=== PATIENT | female | born 1955 | race African-American/Black ===

== ENCOUNTER 2018-04-15 13:26 | Emergency (ER) | payer MEDICARE, MEDICAID ==
[~2018-04-15] VITALS: Ht 167.6 cm; Wt 115.0 kg
[~2018-04-15 13:26] MED LIST: CELL2; DIGO125T82; ESOM40CA; FISH1CAP38; FOLI-43; LIP40; LOSA25TA3; PRED5TAB48; PROG1; TOPXL5
[2018-04-15 14:01] VITALS: BP 171/91
[2018-04-15] MEDS ORDERED: ACETAMINOPHEN 325MG TABLET PO ONE (16:30)
[2018-04-16] MEDS ORDERED: ASPI-1159 MT (11:44)
[2018-04-16] MEDS ORDERED: RIVA20TA MT (11:44)
[2018-04-16] MEDS ORDERED: METO100T16 MT (11:44)
[2018-04-16] MEDS ORDERED: LOSA50TA20 (11:44)
[2018-04-16] MEDS ORDERED: CALC0.253 MT (11:44)
[2018-04-16] MEDS ORDERED: ALEN70TA46 MT (11:44)
== END 2018-04-15 17:08 | disposition home or self-care (01) ==
LOC: ER 13:26
DX: M54.12 Radiculopathy, cervical region (principal); I10 Essential (primary) hypertension; E78.00 Pure hypercholesterolemia, unspecified; Z94.0 Kidney transplant status; Z87.442 Personal history of urinary calculi
CPT/HCPCS: 99282

== ENCOUNTER 2018-06-04 23:00 | Inpatient (IN) | payer MEDICARE, MEDICAID ==
[~2018-06-04] VITALS: Ht 167.6 cm; Wt 112.1 kg
[~2018-06-04 23:00] MED LIST changes: +ALEN70TA46 MT; +ASPI-1159 MT; +CALC0.253 MT; -ESOM40CA; -FISH1CAP38; -FOLI-43; -LOSA25TA3; +LOSA50TA20; +METO100T16 MT; +RIVA20TA MT; -TOPXL5
[2018-06-05] VITALS (36 sets, daily range): BP systolic 109–165; BP diastolic 57–93
[2018-06-05] MEDS ORDERED: ACETAMINOPHEN 325MG TABLET PO STA (00:45)
[2018-06-05] MEDS ORDERED: SODIUM CHLORIDE 0.9% 1,000 ML IV ONE (00:45)
[2018-06-05] MEDS ORDERED: MORPHINE SULFATE 4 MG/ML CPJ (NOT FOR IM USE) IV ONE (01:15)
[2018-06-05] MEDS ORDERED: CEFTRIAXONE 1 G PREMIX 50 ML IV ONE (01:15)
[2018-06-05] MEDS ORDERED: FAMOTIDINE 20MG/2ML VIAL IV ONE (01:15)
[2018-06-05 01:24] LABS: BASOPHILS % 0.3 % (0.0-2.0); EOSINOPHILS % 0.6 % (0.0-5.0); HEMOGLOBIN. 11.8 g/dL (12.0-16.0); LYMPHOCYTES % 12.6 % (20.0-50.0); MEAN CORPUSCULAR HEMOGLOBIN 26.2 pg (28.0-32.0); MEAN CORPUSCULAR VOLUME 82.1 fL (81.0-99.0); MEAN PLATELET VOLUME 9.4 fl (7.4-10.4); MONOCYTES % 8.8 % (2.0-8.0); NEUTROPHILS % 77.7 % (40.0-76.0); PLATELET 139 x1000/uL (130-400); RED BLOOD CELL COUNT 4.51 mill/uL (4.2-5.4); RED CELL DISTRIBUTION WIDTH 14.6 % (11.6-14.6)
[2018-06-05 01:25] LABS: CHLORIDE 101 mEq/L (98-107)
[2018-06-05 01:28] LABS: INR 1.2; PARTIAL THROMBOPLASTIN TIME 27.5 sec (23.4-31.0); PROTHROMBIN TIME 12.1 sec (9.4-11.6)
[2018-06-05 01:31] LABS: PHOSPHORUS 2.7 mg/dL (2.5-4.9)
[2018-06-05 01:46] LABS: CLARITY URINE CLEAR (CLEAR); COLOR URINE YELLOW (YELLOW); KETONES URINE NEGATIVE (NEGATIVE); LEUKOCYTE ESTERASE URINE 1+ (NEGATIVE); NITRITE URINE NEGATIVE (NEGATIVE); OCCULT BLOOD URINE 1+ (NEGATIVE); PH URINE 6.5 (4.5-8.0); PROTEIN URINE NEGATIVE (NEGATIVE); SPECIFIC GRAVITY URINE 1.014 (1.005-1.030); UROBILINOGEN URINE 0.2 E.U./dL (0.2-1.0)
[2018-06-05 01:49] LABS: DIGOXIN 0.6 ng/mL (0.9-2.0)
[2018-06-05] MEDS ORDERED: MAGNESIUM 2 G PREMIX 50 ML IV ONE (02:00)
[2018-06-05 02:07] LABS: AMMONIA 24 uMol/L (<32)
[2018-06-05] MEDS ORDERED: IBUPROFEN 800MG TABLET PO ONE (02:45)
[2018-06-05 03:31] LABS: BG BASE EXCESS -0.2 mmol/L (-2.0-2.0); BG CARBOXYHEMOGLOBIN 0.8 % (0.5-1.5); BG DEOXYHEMOGLOBIN 6.3 % (0.0-5.0); BG FRACTION INSPIRED OXYGEN 21; BG HCO3 ACT 23.6 mmol/L (22.0-26.0); BG METHEMOGLOBIN 0.2 % (0.0-1.5); BG OXYGEN SATURATION 93.6 % (92.0-98.5); BG OXYHEMOGLOBIN 92.7 % (94.0-97.0); BG PCO2 35.8 mmHg (35.0-45.0); BG PH 7.437 (7.350-7.450); BG PO2 69.4 mmHg (75.0-100.0); BG SAMPLE SITE RIGHT BRACHIAL; BG TOTAL HEMOGLOBIN 13.3 g/dL (12.0-18.0); BG VENT MODE ROOM AIR
[2018-06-05] MEDS ORDERED: DOCUSATE SODIUM 100MG CAPSULE PO PRN (07:30)
[2018-06-05] MEDS ORDERED: ENOXAPARIN 40MG/0.4ML SYR SUBCUT SCH ×2 (07:30→09:00)
[2018-06-05] MEDS ORDERED: GUAIFENESIN 200MG/10ML SUGAR FREE UDC PO PRN (07:30)
[2018-06-05] MEDS ORDERED: CLONIDINE 0.1MG TABLET PO PRN (07:30)
[2018-06-05] MEDS ORDERED: NA PHOS,M-B/NA PHOS,DI-BA ENEMA 118ML PR PRN (07:30)
[2018-06-05] MEDS ORDERED: LORAZEPAM 0.5MG TABLET PO PRN (07:30)
[2018-06-05] MEDS ORDERED: IPRATROPIUM/ALBUTEROL 0.5-3(2.5)MG/3ML NEB INH PRN (07:30)
[2018-06-05] MEDS ORDERED: MAGNESIUM/ALUMINUM HYDROXIDE/SIMETHICONE 30ML UDC PO PRN (07:30)
[2018-06-05] MEDS ORDERED: LEVOFLOXACIN 500MG PREMIX 100 ML IV SCH (07:30)
[2018-06-05] MEDS ORDERED: DIPHENHYDRAMINE 50MG/ML VIAL IV PRN (07:30)
[2018-06-05] MEDS ORDERED: ONDANSETRON HCL 4MG/2ML VIAL IV PRN (07:30)
[2018-06-05] MEDS ORDERED: ZOLPIDEM TARTRATE 5MG TABLET PO PRN (07:30)
[2018-06-05] MEDS ORDERED: TRAMADOL 50MG TABLET PO PRN (07:30)
[2018-06-05] MEDS ORDERED: ACETAMINOPHEN 325MG TABLET PO PRN (07:30)
[2018-06-05] MEDS ORDERED: NITROGLYCERIN 0.4MG TABLET SL SL PRN (07:30)
[2018-06-05] MEDS ORDERED: CEFTRIAXONE 1 G PREMIX 50 ML IV SCH (07:45)
[2018-06-05] MEDS ORDERED: POTASSIUM CHLORIDE 20MEQ/PACKET PO SCH (07:45)
[2018-06-05] MEDS ORDERED: MAGNESIUM 2 G PREMIX 50 ML IV SCH (09:00)
[2018-06-05] MEDS: CEFTRIAXONE 1 G PREMIX 50 ML IV SCH (09:02)
[2018-06-05] MEDS: MYCOPHENOLATE MOFETIL 250MG CAPSULE PO SCH ×2 (09:03→21:31)
[2018-06-05] MEDS: FAMOTIDINE 20MG TABLET PO SCH ×2 (09:03→21:31)
[2018-06-05] MEDS: ZINC SULFATE 220 MG ( 50 ) CAPSULE PO SCH (09:03)
[2018-06-05] MEDS: ASCORBIC ACID 500 MG TABLET PO SCH ×2 (09:03→21:31)
[2018-06-05] MEDS: LEVOFLOXACIN 500MG PREMIX 100 ML IV SCH (09:03)
[2018-06-05] MEDS: METOPROLOL TARTRATE 25MG TABLET PO SCH ×2 (09:04→21:31)
[2018-06-05 10:02] LABS: *COCAINE SCREEN URINE NEGATIVE (NEGATIVE); METHADONE URINE SCREEN NEGATIVE (NEGATIVE); OPIATES URINE SCREEN NEGATIVE (NEGATIVE); PHENCYCLIDINE URINE SCREEN NEGATIVE (NEGATIVE)
[2018-06-05 10:03] LABS: *AMPHETAMINES SCREEN URINE NEGATIVE (NEGATIVE); *BARBITURATES SCREEN URINE NEGATIVE (NEGATIVE); CANNABINOID URINE SCREEN NEGATIVE (NEGATIVE)
[2018-06-05 10:05] LABS: *BENZODIAZEPINES SCREEN URINE NEGATIVE (NEGATIVE)
[2018-06-05] MEDS: TACROLIMUS 1MG CAPSULE PO SCH ×3 (13:53→21:31)
[2018-06-05 15:23] LABS: CHLORIDE 103 mEq/L (98-107)
[2018-06-05 15:31] LABS: CREATINE KINASE 75 IU/L (26-192)
[2018-06-05 15:33] LABS: CREATINE KINASE MB FRACTION 0.6 ng/mL (0.5-3.6)
[2018-06-05] MEDS: DIGOXIN 125MCG TABLET PO SCH (17:41)
[2018-06-05] MEDS: PREDNISONE 5MG TABLET PO SCH (17:59)
[2018-06-05] MEDS: RIVAROXABAN 20 MG TABLET PO SCH (17:59)
[2018-06-06] VITALS (13 sets, daily range): BP systolic 107–164; BP diastolic 42–96
[2018-06-06 00:13] LABS: CREATINE KINASE 102 IU/L (26-192)
[2018-06-06 00:14] LABS: CREATINE KINASE MB FRACTION 0.9 ng/mL (0.5-3.6)
[2018-06-06 05:48] LABS: BASOPHILS % 0.6 % (0.0-2.0); EOSINOPHILS % 2.2 % (0.0-5.0); HEMATOCRIT. 35.8 % (36.0-48.0); HEMOGLOBIN. 11.5 g/dL (12.0-16.0); LYMPHOCYTES % 18.2 % (20.0-50.0); MEAN CORPUSCULAR HEMOGLOBIN 26.6 pg (28.0-32.0); MEAN CORPUSCULAR VOLUME 82.9 fL (81.0-99.0); MEAN PLATELET VOLUME 9.3 fl (7.4-10.4); PLATELET 119 x1000/uL (130-400); RED BLOOD CELL COUNT 4.32 mill/uL (4.2-5.4); RED CELL DISTRIBUTION WIDTH 14.8 % (11.6-14.6)
[2018-06-06 05:50] LABS: CHLORIDE 105 mEq/L (98-107)
[2018-06-06] MEDS: METOPROLOL TARTRATE 25MG TABLET PO SCH ×2 (08:43→21:23)
[2018-06-06] MEDS: TACROLIMUS 1MG CAPSULE PO SCH ×2 (08:43→17:50)
[2018-06-06] MEDS: ASCORBIC ACID 500 MG TABLET PO SCH ×2 (08:43→21:23)
[2018-06-06] MEDS: ZINC SULFATE 220 MG ( 50 ) CAPSULE PO SCH (08:43)
[2018-06-06] MEDS: FAMOTIDINE 20MG TABLET PO SCH ×2 (08:43→21:23)
[2018-06-06] MEDS: PREDNISONE 5MG TABLET PO SCH (08:43)
[2018-06-06] MEDS: MYCOPHENOLATE MOFETIL 250MG CAPSULE PO SCH ×2 (08:44→21:23)
[2018-06-06] MEDS: CEFTRIAXONE 1 G PREMIX 50 ML IV SCH (10:35)
[2018-06-06] MEDS: LEVOFLOXACIN 500MG PREMIX 100 ML IV SCH (11:17)
[2018-06-06] MEDS: DIGOXIN 125MCG TABLET PO SCH (17:16)
[2018-06-06] MEDS: RIVAROXABAN 20 MG TABLET PO SCH (17:16)
[2018-06-07] VITALS (16 sets, daily range): BP systolic 87–173; BP diastolic 33–131
[2018-06-07] MEDS: CEFTRIAXONE 1 G PREMIX 50 ML IV SCH (09:14)
[2018-06-07] MEDS: ZINC SULFATE 220 MG ( 50 ) CAPSULE PO SCH (09:14)
[2018-06-07] MEDS: FAMOTIDINE 20MG TABLET PO SCH ×2 (09:15→20:27)
[2018-06-07] MEDS: PREDNISONE 5MG TABLET PO SCH (09:15)
[2018-06-07] MEDS: MYCOPHENOLATE MOFETIL 250MG CAPSULE PO SCH ×2 (09:15→20:27)
[2018-06-07] MEDS: TACROLIMUS 1MG CAPSULE PO SCH ×2 (09:15→16:48)
[2018-06-07] MEDS: METOPROLOL TARTRATE 25MG TABLET PO SCH ×2 (09:15→20:27)
[2018-06-07] MEDS: ASCORBIC ACID 500 MG TABLET PO SCH ×2 (09:15→20:27)
[2018-06-07] MEDS: LEVOFLOXACIN 500MG PREMIX 100 ML IV SCH (11:10)
[2018-06-07] MEDS: DIGOXIN 125MCG TABLET PO SCH (16:48)
[2018-06-07] MEDS: RIVAROXABAN 20 MG TABLET PO SCH (16:48)
[2018-06-08] VITALS (13 sets, daily range): BP systolic 131–167; BP diastolic 18–109
[2018-06-08] MEDS: ASCORBIC ACID 500 MG TABLET PO SCH ×2 (08:36→21:27)
[2018-06-08] MEDS: FAMOTIDINE 20MG TABLET PO SCH ×2 (08:36→21:27)
[2018-06-08] MEDS: PREDNISONE 5MG TABLET PO SCH (08:36)
[2018-06-08] MEDS: TACROLIMUS 1MG CAPSULE PO SCH ×2 (08:36→17:21)
[2018-06-08] MEDS: METOPROLOL TARTRATE 25MG TABLET PO SCH ×2 (08:37→21:28)
[2018-06-08] MEDS: ZINC SULFATE 220 MG ( 50 ) CAPSULE PO SCH (08:37)
[2018-06-08] MEDS: MYCOPHENOLATE MOFETIL 250MG CAPSULE PO SCH ×2 (08:37→21:27)
[2018-06-08] MEDS: CEFTRIAXONE 1 G PREMIX 50 ML IV SCH (08:37)
[2018-06-08] MEDS: LEVOFLOXACIN 500MG PREMIX 100 ML IV SCH (11:00)
[2018-06-08] MEDS: RIVAROXABAN 20 MG TABLET PO SCH (17:21)
[2018-06-08] MEDS: DIGOXIN 125MCG TABLET PO SCH (17:21)
[2018-06-09] VITALS (8 sets, daily range): BP systolic 139–166; BP diastolic 69–81
[2018-06-09] MEDS: ZINC SULFATE 220 MG ( 50 ) CAPSULE PO SCH (08:08)
[2018-06-09] MEDS: PREDNISONE 5MG TABLET PO SCH (08:08)
[2018-06-09] MEDS: TACROLIMUS 1MG CAPSULE PO SCH (08:08)
[2018-06-09] MEDS: METOPROLOL TARTRATE 25MG TABLET PO SCH (08:08)
[2018-06-09] MEDS: FAMOTIDINE 20MG TABLET PO SCH (08:08)
[2018-06-09] MEDS: MYCOPHENOLATE MOFETIL 250MG CAPSULE PO SCH (08:08)
[2018-06-09] MEDS: ASCORBIC ACID 500 MG TABLET PO SCH (08:09)
[2018-06-09] MEDS: CEFTRIAXONE 1 G PREMIX 50 ML IV SCH (08:12)
[2018-06-09] MEDS ORDERED: LEVOFLOXACIN 500MG TABLET PO SCH (11:00)
== END 2018-06-09 13:55 | disposition home health service (06) | DRG 871 ==
LOC: ER 23:00 → EDBEDREQSVC 06-05 01:46 → ENRESERV 06-05 02:11 → CVICU 06-05 03:55 → EDBEDREQ 06-05 03:57 → 3WST 06-05 18:44
PROVIDERS: ADMIT Internal Medicine; ATTEND Internal Medicine
DX: A41.9 Sepsis, unspecified organism (principal); G92 Toxic encephalopathy; Z94.0 Kidney transplant status; N39.0 Urinary tract infection, site not specified; E87.6 Hypokalemia; E83.42 Hypomagnesemia; E66.9 Obesity, unspecified; E78.5 Hyperlipidemia, unspecified; I10 Essential (primary) hypertension; I48.91 Unspecified atrial fibrillation; E87.5 Hyperkalemia; E83.51 Hypocalcemia; I25.10 Atherosclerotic heart disease of native coronary artery without angina pectoris; I25.2 Old myocardial infarction; Z79.01 Long term (current) use of anticoagulants; Z87.440 Personal history of urinary (tract) infections; Z95.810 Presence of automatic (implantable) cardiac defibrillator; Z79.82 Long term (current) use of aspirin; Z79.899 Other long term (current) drug therapy; Z68.39 Body mass index [BMI] 39.0-39.9, adult
CPT/HCPCS: 36415; 36600; 70450; 71045; 74176; 80048; 80053; 80061; 80162; 80197; 80305; 81003; 82140; 82375; 82533; 82550; 82553; 82805; 83036; 83605; 83690; 83735; 83880; 84100; 84484; 85025; 85610; 85730; 87040; 87086; 93005; 93306; 93970; 96365; 96366; 96375; 97162; 97165; 99291; J0696; J1650; J1956; J2270; J2405; J3475; J3490; J7030; J7040; J7507; J7512; J7517

== ENCOUNTER 2018-08-31 11:00 | Emergency (ER) | payer MEDICARE, MEDICAID ==
[~2018-08-31] VITALS: Ht 170.2 cm; Wt 113.0 kg
[2018-08-31 12:24] LABS: CHLORIDE 105 mEq/L (98-107)
[2018-08-31 13:02] VITALS: BP 155/80
== END 2018-08-31 13:14 | disposition home or self-care (01) ==
LOC: ER 11:00
DX: R05 Cough (principal); R42 Dizziness and giddiness; E78.00 Pure hypercholesterolemia, unspecified; I10 Essential (primary) hypertension; Z79.82 Long term (current) use of aspirin; Z79.899 Other long term (current) drug therapy; Z95.0 Presence of cardiac pacemaker; Z98.890 Other specified postprocedural states
CPT/HCPCS: 36415; 71045; 80048; 93005; 99285

== ENCOUNTER 2018-09-09 14:42 | Emergency (ER) | payer MEDICARE, MEDICAID ==
[~2018-09-09] VITALS: Ht 167.6 cm; Wt 113.0 kg
[2018-09-09] MEDS ORDERED: IPRATROPIUM/ALBUTEROL 0.5-3(2.5)MG/3ML NEB HHN ONE (17:00)
[2018-09-09 17:30] LABS: BASOPHILS % 0.5 % (0.0-2.0); EOSINOPHILS % 2.9 % (0.0-5.0); HEMATOCRIT. 37.7 % (36.0-48.0); HEMOGLOBIN. 12.2 g/dL (12.0-16.0); LYMPHOCYTES % 26.4 % (20.0-50.0); MEAN CORPUSCULAR HEMOGLOBIN 26.9 pg (28.0-32.0); MEAN PLATELET VOLUME 9.9 fl (7.4-10.4); MONOCYTES % 8.7 % (2.0-8.0); NEUTROPHILS % 61.5 % (40.0-76.0); PLATELET 158 x1000/uL (130-400); RED BLOOD CELL COUNT 4.54 mill/uL (4.2-5.4); RED CELL DISTRIBUTION WIDTH 14.9 % (11.6-14.6)
[2018-09-09 17:34] LABS: INR 1.1; PROTHROMBIN TIME 11.4 sec (9.1-11.1)
[2018-09-09 17:42] LABS: CHLORIDE 103 mEq/L (98-107)
[2018-09-09 19:00] LABS: CLARITY URINE TURBID (CLEAR); COLOR URINE YELLOW (YELLOW); KETONES URINE TRACE (NEGATIVE); LEUKOCYTE ESTERASE URINE TRACE (NEGATIVE); NITRITE URINE NEGATIVE (NEGATIVE); OCCULT BLOOD URINE TRACE (NEGATIVE); PROTEIN URINE NEGATIVE (NEGATIVE); SPECIFIC GRAVITY URINE 1.019 (1.005-1.030); UROBILINOGEN URINE 0.2 E.U./dL (0.2-1.0)
[2018-09-09 22:41] VITALS: BP 166/78
== END 2018-09-10 03:52 | disposition home or self-care (01) ==
LOC: ER 14:42
DX: R05 Cough (principal); I11.0 Hypertensive heart disease with heart failure; I50.9 Heart failure, unspecified; Z95.0 Presence of cardiac pacemaker
CPT/HCPCS: 36415; 71045; 80053; 81003; 83880; 85025; 85610; 94640; 99285; J7620